=== PATIENT | male | born 1980 | race Hispanic/Latino ===

== ENCOUNTER 2025-06-24 08:07 | Emergency (ER) | payer OTHER, SELFPAY ==
[2025-06-24 08:25] VITALS: BP 166/93; PULSE 87; RESP 16; TEMP 36.7; O2SAT 96; BMI 31.1
--- NOTE | 2025-06-24 09:22 | DI.RAD.S_ITS ---
PROCEDURE: XR LUMBAR SPINE 2-3V INDICATIONS: sacral pain after fall TECHNIQUE: 3 views of the lumbar spine were acquired. COMPARISON: None. FINDINGS: Bones: 5 [id number] vertebrae are present. There is normal bony alignment. No vertebral body compression fractures. No suspicious bony lesions. Soft tissues: Overlying bowel gas pattern is normal. No suspicious soft tissue calcifications. IMPRESSION: No acute vertebral body compression fracture or spondylolisthesis. Dictated by: Ash Pickens M.D. on 06/24/2025 at 9:59 Approved by: Ash Pickens M.D. on 06/24/2025 at 10:00
--- NOTE | 2025-06-24 09:22 | DI.CT.S_ITS ---
PROCEDURE: CT CERVICAL SPINE WO CON INDICATIONS: neck trauma TECHNIQUE: Noncontrast 3 mm thick sections acquired from the skull base to the T4 level. Sagittal and coronal reformats were then constructed. For radiation dose reduction, the following was used: automated exposure control, adjustment of mA and/or kV according to patient size. COMPARISON: None. FINDINGS: Image quality: Excellent. Bones: No fractures or dislocations. Straightening of normal cervical lordosis is seen. Visualized superior ribs are intact. Soft tissues: Prevertebral soft tissues are normal in thickness. No paravertebral hematomas. No apical pneumothoraces. IMPRESSION: 1. No displaced fracture or traumatic subluxation. Dictated by: Ash Pickens M.D. on 06/24/2025 at 9:54 Approved by: Ash Pickens M.D. on 06/24/2025 at 9:54
--- NOTE | 2025-06-24 09:22 | DI.RAD.S_ITS ---
PROCEDURE: XR PELVIS 1-2V INDICATIONS: sacral pain after fall TECHNIQUE: 1 view(s) of the pelvis acquired. COMPARISON: None. FINDINGS: Bones: No fractures or dislocations. No suspicious bony lesions. Soft tissues: Visualized bowel gas pattern is normal. No suspicious soft tissue calcifications. IMPRESSION: No gross acute pelvic fracture or dislocation. Dictated by: Ash Pickens M.D. on 06/24/2025 at 10:00 Approved by: Ash Pickens M.D. on 06/24/2025 at 10:00
--- NOTE | 2025-06-24 09:22 | DI.RAD.S_ITS ---
PROCEDURE: XR THORACIC SPINE 3V INDICATIONS: back pain after trauma TECHNIQUE: 3 views of the thoracic spine were acquired. COMPARISON: None. FINDINGS: Bones: No fractures or dislocations. No suspicious bony lesions. 12 pairs of ribs are noted, and appear intact where visualized. Soft tissues: No paravertebral stripe thickening. IMPRESSION: No acute thoracic spine compression fracture or spondylolisthesis. No significant spondylitic changes. Dictated by: Ash Pickens M.D. on 06/24/2025 at 10:00 Approved by: Ash Pickens M.D. on 06/24/2025 at 10:00
--- NOTE | 2025-06-24 09:22 | DI.CT.S_ITS ---
PROCEDURE: CT HEAD/BRAIN WO CON INDICATIONS: head injury TECHNIQUE: Noncontrast 4.5 mm thick angled axial sections acquired from the foramen magnum to the vertex, with coronal and sagittal reformats. For radiation dose reduction, the following was used: automated exposure control, adjustment of mA and/or kV according to patient size. COMPARISON: None. FINDINGS: Image quality: Diagnostic. CSF spaces: Basal cisterns are patent. No extra-axial fluid collections. Ventricles are normal in size and shape. Brain: No midline shift. Benign-appearing calcifications are noted in bilateral basal ganglia. No intracranial mass effect or hemorrhage. Hairston-white matter interface is normal. Skull and face: Calvarium and visualized facial bones are intact, without suspicious lesions. Sinuses: Visualized sinuses and mastoids are clear. IMPRESSION: No acute intracranial pathology. No acute skull fracture. Dictated by: Ash Pickens M.D. on 06/24/2025 at 9:53 Approved by: Ash Pickens M.D. on 06/24/2025 at 9:53
--- NOTE | 2025-06-24 09:24 | ED.FALL ---
HPI - Fall General Chief Complaint: Fall Stated Complaint: Fell at work , Back, head, and butt pain Time Seen by Provider: 06/24/25 08:56 Source: patient Mode of arrival: Ambulatory History of Present Illness HPI Narrative: 44-year-old male who primarily speaks [place]. Had a ground level fall yesterday after slipping on a wet floor while at work. Says he did have loss of consciousness. Today he is not vomiting he does have a headache he has neck pain he has pain throughout his back and in the sacral area. No focal numbness or weakness no problems with bowel or bladder control previously healthy. Related Data Previous Rx's ?Medication ?Instructions ?Recorded ibuprofen 600 mg tablet 600 mg PO TID PRN pain #30 tabs 06/24/25 Allergies Allergy/AdvReac Type Severity Reaction Status Date / Time No Known Drug Allergies Allergy Verified 06/24/25 08:29 Patient History Social History Smoking Status: Never smoker Smoking Status: Never smoker Exam Narrative Exam Narrative: Alert and in no distress vital signs reviewed and unremarkable. Hand appears to be atraumatic pupils are equal and reactive extraocular movements are intact Mental status is intact. He moves all 4 extremities spontaneously and equally. Midline tenderness diffusely in the cervical thoracic and lumbar spine. Ambulatory with a steady gait Normal respiratory effort Initial Vital Signs Initial Vital Signs: Vital Signs Temperature 98.0 F 06/24/25 08:25 Pulse Rate 87 06/24/25 08:25 Respiratory Rate 16 06/24/25 08:25 Blood Pressure 166/93 H 06/24/25 08:25 Pulse Oximetry 96 06/24/25 08:25 Oxygen Delivery Method Room Air 06/24/25 08:25 Course Orders Ordered: ED Orders 06/24/25 09:22 CT cervical spine wo con Stat CT head/brain wo con Stat XR lumbar spine 2-3V Stat XR pelvis 1-2V Stat XR thoracic spine 3V Stat Vital Signs Vital signs: Vital Signs - 8 hr 06/24/25 08:25 06/24/25 11:49 06/24/25 11:50 Temperature 98.0 F Pulse Rate 87 77 Respiratory Rate 16 Blood Pressure 166/93 H 132/99 H Pulse Oximetry 96 95 Oxygen Delivery Method Room Air 06/24/25 11:50 Temperature Pulse Rate 78 Respiratory Rate 18 Blood Pressure Pulse Oximetry 95 Oxygen Delivery Method Room Air MDM - Fall Imaging Data CT scan - head: My Impression: Independently reviewed no acute findings Radiologist's Impression: Radiology report no acute findings CT - cervical spine: My Impression: Independently reviewed no acute findings Radiologist's Impression: Reviewed radiology report no acute injury Thoracic and lumbar spine and pelvis: My Impression: Plain films of the thoracic, lumbar spine and pelvis were obtained and negative on my initial interpretation Radiologist's Impression: Radiology reports reviewed, no acute findings MDM Narrative Medical decision making narrative: 44-year-old male with a ground level fall yesterday striking his head with a loss of consciousness. Today he is complaining of a headache neck back and pelvic pain. Examination is reassuring, imaging is negative for acute injury, I considered but do not suspect fracture of the cervical thoracic lumbar spine or pelvis and intracranial injury. Recommended ibuprofen on a scheduled basis. He may return to work but no lifting greater than 20 lb no repetitive bending or twisting. He is to follow up with primary care. Discharge Plan Departure Patient Disposition: Home Clinical Impression: Cervical muscle strain Qualifiers: Encounter type: initial encounter Qualified Code(s): S16.1XXA - Strain of muscle, fascia and tendon at neck level, initial encounter Head injury Qualifiers: Encounter type: initial encounter Qualified Code(s): S09.90XA - Unspecified injury of head, initial encounter Lumbar strain Qualifiers: Encounter type: initial encounter Qualified Code(s): S39.012A - Strain of muscle, fascia and tendon of lower back, initial encounter Activity Restrictions/Additional Instructions: No serious injury is found today. I think it is safe to go home, you can use ibuprofen 600 mg 3 times a day, take this with food. May also use acetaminophen (Tylenol) at usual ahsr-[id number]-[id number] doses. Activity as tolerated. I have recommended that you do no bending or heavy lifting for 1 week. Follow up soon with your primary care provider. Return to the emergency department for severe headache vomiting or other acute symptoms Hoy no se encuentra ninguna lesi?n grave. Creo que es seguro ir a casa, puede usar ibuprofeno 600 mg 3 veces al d?a, t?gómez con alimentos. Tambi?n puede usar acetaminof?n (Tylenol) en las dosis habituales de venta loli. Actividad seg?n lo tolerado. He recomendado que no se agache ni levante objetos pesados elina 1 semana. Beverly un seguimiento pronto con brock m?dico de atenci?n primaria.Regrese al departamento de urgencias si presenta dolor de margie intenso, v?mitos u otros s?ntomas agudos. Prescriptions: New ibuprofen 600 mg tablet 600 mg PO TID PRN (Reason: pain) Qty: 30 0RF Stand Alone Forms: Patient Portal/API, Work Release Note
--- NOTE | 2025-06-24 10:46 | PC.NURSE ---
Slipped and fell at work. C/o pain in buttocks, pt denies significant bruising, pain worse with ambulation. No thinners. Reports short period of LOC, normal mentation since.
[2025-06-24 11:49] VITALS: PULSE 77; O2SAT 95
[2025-06-24 11:50] VITALS: BP 132/99; PULSE 78; RESP 18; O2SAT 95
== END 2025-06-24 12:02 | disposition home or self-care (01) ==
PROVIDERS: Emergency Provider Emergency Medicine
DX: S16.1XXA Strain of muscle, fascia and tendon at neck level, initial encounter (principal); S39.012A Strain of muscle, fascia and tendon of lower back, initial encounter; S09.90XA Unspecified injury of head, initial encounter; R51.9 Headache, unspecified; W01.0XXA Fall on same level from slipping, tripping and stumbling without subsequent striking against object, initial encounter; Y99.0 Civilian activity done for income or pay
CPT/HCPCS: 70450; 72072; 72100; 72125; 72170; 99281; 99284